=== PATIENT | female | born 1955 | race Caucasian/White ===

== ENCOUNTER 2021-12-05 07:57 | Outpatient (CLI) | payer MEDICARE, BC, SELFPAY ==
--- OUTSIDE RECORDS SUMMARY | 2021-12-05 07:59 | XMS_ITS | Clinical Summary ---
:1955 Author Organization [facility] [place] [address] Care Team Providers Name Role Phone Pcp, No Primary Care Provider Unavailable Allergies Active Allergy Reactions Severity Noted Date Comments Aspirin, Buffered 01/14/2010 Azithromycin Diarrhea, Rash 01/14/2010 Caffeine 01/14/2010 Penicillins Anaphylaxis 01/14/2010 Sulfa (Sulfonamide Antibiotics) Bleeding 0 Medications Medication Sig Dispensed Refills Start Date End Date Status atenolol (TENORMIN) Take 1 tablet by 0 01/14/2010 Active 25 mg tablet mouth 2 times daily. warfarin (COUMADIN) once daily. Takes 0 01/14/2010 Active 7.5 mg tablet 7.5 mg 4 days a week and 5 mg 3 days a week levothyroxine Take 1 tablet by 0 04/03/2010 Active (SYNTHROID) 175 mcg mouth once daily. tabletIndications: IBS (irritable bowel syndrome) omega-3 fatty Take 2 capsules 0 04/03/2010 Active acids-vitamin E (FISH by mouth once OIL) 1,000 mg Cap daily. multivitamin (MVI) Take 1 tablet by 0 04/03/2010 Active tablet mouth once daily. coenzyme q10 100 mg Take 1 capsule by 200 capsule 3 04/03/2010 Active Cap mouth 2 times daily. Thyroid, Pork, Take by mouth. 65 30 Tab 3 04/10/2010 Active (NATURE-THROID) 65 mg mg tab in am 1 Tab 1/2 tabs of 32.5 (48.75 mg) mg in mid to late afternoon Thyroid, Pork, Take by mouth. 65 mg tab in am 1 1/2 tabs of 32.5 (48.75 mg) mg in mid to late afternoon 60 Tab 2 04/10/2010 Act nayeli (NATURE-THROID) 32.5 mg Tab Give 60 tabs as we may titrate up to 65/65 predniSONE 2 tabs once daily 11 tablet 0 10/07/2017 Active (DELTASONE) 20 mg for 3 days then 1 tabletIndications: tab once daily Calcific Achilles for 3 days then tendonitis 1/2 tab once daily for 4 days. Active Problems Problem Noted Date Anti-phospholipid antibody syndrome 01/14/2010 Unspecified hypothyroidism 01/14/2010 HTN (hypertension) 01/14/2010 Fibromyalgia 01/14/2010 IBS (irritable bowel syndrome) 01/14/2010 Family History Medical History Relation Name Comments Other Brother 2 djd, migraine, i bs Other Father d 71, lung cance r smoke, prostate Other Mother d heart, alhz, 7 4, RA and OA Other Sister 2 fibro, diabetes, htn, djd Relation Name Status Comments Brother 1 Alive Brother 2 Father Mother Sister 1 Alive Sister 2 Social History Tobacco Use Types Packs/Day Years Used Date Never Smoker Smokeless Tobacco: Never Used Alcohol Use Standard Drinks/Week Comments No 0 (1 standard drink = 0.6 oz pure alcoho l) Sex Assigned at Date Recorded Not on file Obstetrics History Last Filed Vital Signs Vital Sign Reading Time Taken Comments Blood Pressure 124/80 10/07/2017 8:53 AM CDT Pulse 58 10/07/2017 8:53 AM CDT Temperature 36.9 ??C (98.4 ??F) 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 Respiratory Rate - - Oxygen Saturation 98% 10/07/2017 8:53 AM CDT Inhaled Oxygen Concentration - - Weight 104.5 kg (230 lb 6.4 oz) 10/07/2017 8:53 AM CDT Height - - Body Mass Index - - Plan of Treatment Health Maintenance Due Date Last Done Comments COVID-19 vaccine series (#1) 04[birth year]27/1956 Tdap 10/28/1966 Depression screening for age 12+ 1967 BMI (ht and wt on same day) for age 18+ 10/28/1973 Hepatitis C screening for age 18-79 10/28/1973 Tetanus booster 1975 Colonoscopy through age 75 10/28/2000 Lipids for age 45-75 10/28/2000 Mammogram for age 45-75 10/28/2000 Zoster (shingles) series for age 50+ (1 of 2) 10/28/2005 DEXA/DXA scan for age 65+ 10/28/2020 Pneumococcal series for age 65+ (1 - PCV) 10/28/2020 Influenza for age 65+ 10/10/2021 Results Not on filefrom Last 3 Months Insurance Payer Benefit Plan / Subscriber ID Effective Dates Phone Addre ss Type Group BLUE [place] [id number] 2009-Present [address] [id number] [place] [address] Care Teams Guest Room Inspector Relationship Specialty Start Date End Date Pcp, No PCP - General 08/31/17 .
--- OUTSIDE RECORDS SUMMARY | 2021-12-05 07:59 | XMS_ITS | Referral Summary ---
:1955 Author Organization [facility] Address [address] [place] [id number]- Encounter 02/04/18 - 02/04/18 [facility] [address] [address] Encounter Diagnosis Antiphospholipid syndrome (Final) - Discharge Disposition: 01-Home or Self Care Attending Physician: GUILHERME, DIAMONDNSYSTEM Admitting Physician: PROVIDERDIAMONDNSYSTEM Results Coagulation Most recent to oldest [Reference Range]: 1 PT [11.6-15.0 seconds] 27.8 seconds *HI* (02/04/18 9:53 AM) INR 2.5 *NA* (02/04/18 9:53 AM) Social History Social History Type Response
--- OUTSIDE RECORDS SUMMARY | 2021-12-05 07:59 | XMS_ITS | Referral Summary ---
:1955 Author Organization [facility] Address [address] [place] [id number]- Encounter 04/10/20 - 04/10/20 [facility] [address] [address] Discharge Disposition: 01-Home or Self Care Attending Physician: DIAMOND VANEGASNSYSTEM Admitting Physician: DIAMOND VANEGASNSYSTEM Results Most recent to oldest [Reference Range]: 1 PT [11.6-15.0 seconds] 26.1 seconds *HI* (04/10/20 1:43 PM) INR 2.4 *NA* (04/10/20 1:43 PM) Social History Social History Type Response
--- OUTSIDE RECORDS SUMMARY | 2021-12-05 07:59 | XMS_ITS | Referral Summary ---
:1955 Author Organization [facility] Address [address] [place] [id number]- Encounter 03/19/18 - 03/19/18 [facility] [address] [address] Discharge Disposition: 01-Home or Self Care Attending Physician: Cande Raman MD Admitting Physician: Cande Raman MD Results Coagulation Most recent to oldest [Reference Range]: 1 PT [11.6-15.0 seconds] 33.4 seconds *HI* (03/19/18 8:19 AM) INR 3.2 *NA* (03/19/18 8:19 AM) Social History Social History Type Response
--- NOTE | 2021-12-05 08:15 | CRLHL7_ITS ---
For Patients: As a result of the Century Cures Act, medical imaging exams and procedure reports are released immediately into your electronic medical record. You may view this report before your referring provider. If you have questions, please contact your health care provider. Indication: Hearing loss Technique: Brain and temporal bone MRI with contrast. The following sequences were obtained: DWI and ADC mapping sequences. Sagittal T1 weighted sequence. Axial FLAIR and T2 weighted sequences of the whole brain. 3D T2-weighted high resolution sequence of the temporal bones. Thin section T1 weighted axial and coronal pre-contrast and post-contrast sequences of the temporal bones. 3D T1 weighted post-contrast sequence of the whole brain. 15 cc gadolinium based contrast agent was used. Comparison: None Findings: No diffusion abnormalities. No evidence of recent or prior hemorrhage. No mass effect. The banks and white matter are normal in signal intensity. Small chronic cortical infarct in the left precentral gyrus. Small chronic lacunar infarct in the right parietal chatman radiata. Scattered foci of T2/FLAIR signal hyperintensity in the supratentorial white matter nonspecific but likely represent chronic microangiopathic changes. The sella turcica, its contents and adjacent structures appear normal. All the major intracranial vascular structures demonstrate normal flow-related signal voids and intraluminal enhancement. The inner ears, internal auditory canals, cerebellopontine angle cisterns, cerebellum, brainstem and temporal lobes bilaterally are normal in appearance. No vessel frankly impinges upon the 7th/8th cranial nerve complexes. There is no mass or pathologic enhancement involving the 7th or 8th cranial nerves on either side. The orbital contents are normal. No marrow signal abnormality. The paranasal sinuses and mastoid air cells are unremarkable. The scalp and other imaged soft tissue structures are normal in appearance. Impression: 1. No evidence of acute intracranial abnormality. 2. 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 Chronic small lacunar infarct in the right parietal chatman radiata. Mild presumed chronic microangiopathic changes. 3. Unremarkable MRI of the internal auditory canals, temporal bone structures, and cerebellopontine angles. Dictated by Adam Benson MD @ 12/05/2021 1:33:11 PM (Electronically Signed)
== END 2021-12-05 07:58 | disposition home or self-care (01) ==
LOC: MRI 07:58
PROVIDERS: PCP Internal Medicine; Visit Provider Otolaryngology
DX: H91.90 Unspecified hearing loss, unspecified ear (principal); I63.81 Other cerebral infarction due to occlusion or stenosis of small artery
CPT/HCPCS: 70553; A9575

== ENCOUNTER 2022-04-14 09:25 | Outpatient (CLI) | payer MEDICARE, BC, SELFPAY | END 2022-04-14 09:26 | disposition home or self-care (01) | LOC: NFLDREF 04-18 10:00 | PROVIDERS: PCP Internal Medicine; Referring Provider Internal Medicine; Visit Provider Internal Medicine | DX: E78.5 Hyperlipidemia, unspecified (principal); E03.9 Hypothyroidism, unspecified; D68.61 Antiphospholipid syndrome; Z87.39 Personal history of other diseases of the musculoskeletal system and connective tissue; Z51.81 Encounter for therapeutic drug level monitoring; Z79.01 Long term (current) use of anticoagulants; Z13.1 Encounter for screening for diabetes mellitus | CPT/HCPCS: 80061; 82947; 84439; 84443; 84550; 85610 ==

== ENCOUNTER 2022-08-26 13:17 | Outpatient (CLI) | payer MEDICARE, BC, SELFPAY ==
--- NOTE | 2022-08-26 13:20 | CRLHL7_ITS ---
For Patients: As a result of the Cures Act, medical imaging exams and procedure reports are released immediately into your electronic medical record. You may view this report before your referring provider. If you have questions, please contact your health care provider. BILATERAL SCREENING MAMMOGRAM WITH COMPUTER-AIDED DETECTION AND TOMOSYNTHESIS TECHNIQUE: CC and MLO views were obtained. These mammographic images have been obtained using full-field digital technique. These mammographic images were interpreted with the benefit of computer-aided detection. Breast tomosynthesis was used in this interpretation. COMPARISON FILM: 04/18/21, 12/15/18, 09/26/16. FINDINGS: There are scattered areas of fibroglandular density. IMPRESSION: There is no radiographic evidence for malignancy. ASSESSMENT: BI-RADS Category 2: Benign RECOMMENDATION: Routine screening mammogram in 1 year. A lay language report of this examination will be provided to the patient. SOCORRO BLACKBURN M.D. Diagnostic/Nuclear Medicine Radiologist [email or web address] MIKE:[email or web address] Transcribed: 08/27/2022, 5:[address]/Dictated by: Socorro Blackburn MD @ 08/27/2022 8:31:00 AM (Electronically Signed)
== END 2022-08-26 13:18 | disposition home or self-care (01) ==
LOC: MAMMO 13:18
PROVIDERS: PCP Internal Medicine; Visit Provider Internal Medicine
DX: Z12.31 Encounter for screening mammogram for malignant neoplasm of breast (principal)
CPT/HCPCS: 77063; 77067

== ENCOUNTER 2022-09-22 08:47 | Outpatient (CLI) | payer MEDICARE, BC, SELFPAY | END 2022-09-22 08:48 | disposition home or self-care (01) | LOC: NFLDREF 11:18 | PROVIDERS: PCP Internal Medicine; Referring Provider Internal Medicine; Visit Provider Internal Medicine | DX: E03.9 Hypothyroidism, unspecified (principal); Z51.81 Encounter for therapeutic drug level monitoring; Z79.01 Long term (current) use of anticoagulants | CPT/HCPCS: 84439; 84443; 85610 ==

== ENCOUNTER 2023-01-23 09:33 | Outpatient (CLI) | payer MEDICARE, SELFPAY | END 2023-01-23 09:34 | disposition home or self-care (01) | LOC: NFLDREF 09:34 | PROVIDERS: PCP Internal Medicine; Visit Provider Internal Medicine | DX: E03.9 Hypothyroidism, unspecified (principal); E78.5 Hyperlipidemia, unspecified; Z79.01 Long term (current) use of anticoagulants; D68.61 Antiphospholipid syndrome; M85.80 Other specified disorders of bone density and structure, unspecified site | CPT/HCPCS: 80061; 82306; 84439; 84443; 85610 ==

== ENCOUNTER 2023-05-20 08:50 | Outpatient (CLI) | payer MEDICARE, SELFPAY ==
--- OUTSIDE RECORDS SUMMARY | 2023-06-09 09:12 | XMS_ITS | Clinical Summary ---
Author Name Unknown Organization [id number] [place] [address] Care Team Providers Care Social Insurance Analyst Name Role Phone Pcp, No Primary Care Provider Unavailabl e Allergies Active Allergy Reactions Criticality Noted Date Comments Aspirin, Buffered 01/14/2010 Azithromycin Diarrhea,Rash 01/14/2010 Caffeine 01/14/2010 Penicillins Anaphylaxis 01/14/2010 Sulfa (Sulfonamide Antibiotics) Bleeding 07/2009 Medications Medication Sig Dispensed Refills Start Date End Date Status atenolol (TENORMIN) 25 mg tablet Take 1 tablet by mouth 2 times daily. 0 01/14/2010 Active warfarin (COUMADIN) 7.5 mg tablet once daily. Takes 7.5 mg 4 days a week and 5 mg 3 days a week 0 01/14/2010 Active levothyroxine (SYNTHROID) 175 mcg tabletIndications:I BS (irritable bowel syndrome) Take 1 tablet by mouth once daily. 0 04/03/2010 Active omega-3 fatty acids-vitamin E (FISH OIL) 1,000 mg Cap Take 2 capsules by mouth once daily. 0 04/03/2010 Active multivitamin (MVI) tablet Take 1 tablet by mouth once daily. 0 04/03/2010 Active coenzyme q10 100 mg Cap Take 1 capsule by mouth 2 times daily. 200 capsule 3 04/03/2010 Active Thyroid, Pork, (NATURE-THROID) 65 mg Tab Take by mouth. 65 mg tab in am 1 1/2 tabs of 32.5 (48.75 mg) mg in mid to late afternoon 30 Tab 3 04/10/2010 Active Thyroid, Pork, (NATURE-THROID) 32.5 mg Tab Take by mouth. 65 mg tab in am 1 1/2 tabs of 32.5 (48.75 mg) mg in mid to late afternoon Give 60 tabs as we may titrate up to 65/65 60 Tab 2 04/10/2010 Active predniSONE (DELTASONE) 20 mg tabletIndications:C alcific Achilles tendonitis 2 tabs once daily for 3 days then 1 tab once daily for 3 days then 1/2 tab once daily for 4 days. 11 tablet 10/07/2017 Active Active Problems Problem Noted Date Diagnosed Date Anti-phospholipid antibody syndrome 01/14/2010 Unspecified hypothyroidism 01/14/2010 HTN (hypertension) 01/14/2010 Fibromyalgia 01/14/2010 IBS (irritable bowel syndrome) 01/14/2010 Family History Medical History Relation Name Comments Other Brother 2 djd, migraine, ibs Other Father d 71, lung canc er smoke, prostate Other Mother d heart, alhz, 74, RA and OA Other Sister 2 fibro, diabetes , htn, djd Relation Name Status Comments Brother 1 Alive Brother 2 Father Mother Sister 1 Alive Sister 2 Social History Tobacco Use Types Packs/Day Years Used Date Smoking Tobacco: Never Smokeless Tobacco: Never Alcohol Use Standard Drinks/Week Comments No 0 (1 standard drink = 0.6 oz pur e alcohol) Sex and Gender Information Value Date Recorded Sex Assigned at Not on file Gender Identity Not on file Sexual Orientation Not on file Obstetrics History Last Filed Vital Signs Vital Sign Reading Time Taken Comments Blood Pressure 124/80 10/07/2017 8:53 AM CDT Pulse 58 10/07/2017 8:53 AM CDT Temperature 36.9 ??C (98.4 ??F) 01/14/2010 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 Respiratory Rate - - Oxygen Saturation 98% 10/07/2017 8:53 AM CDT Inhaled Oxygen Concentration - - Weight 104.5 kg (230 lb 6.4 oz) 10/07/2017 8:53 AM CDT Height - - Body Mass Index - - Plan of Treatment Health Maintenance Due Date Last Done Comments Tdap 10/28/1966 Depression screening for age 12+ 1967 BMI (ht and wt on same day) for age 18+ 10/28/1973 Hepatitis C screening for age 18-79 10/28/1973 Tetanus booster 1975 Colonoscopy through age 75 10/28/2000 Lipids for age 45-75 10/28/2000 Mammogram for age 45-75 10/28/2000 Zoster (shingles) series for age 50+ (1 of 2) 10/29/19 06 DEXA/DXA scan for age 65+ 10/28/2020 Pneumococcal series for age 65+ (1 of 1 - PCV) 021 COVID-19 vaccine series (1 - 2022-24 season) 3 Influenza for age 65+ 10/11/2023 Care Teams Social Insurance Analyst Relationship Specialty Start Date End Date Pcp, No . PCP - General 08/31/17
== END 2023-05-20 08:51 | disposition home or self-care (01) ==
LOC: NFLDREF 06-09 09:11
PROVIDERS: PCP Internal Medicine; Referring Provider Internal Medicine; Visit Provider Internal Medicine
DX: E03.9 Hypothyroidism, unspecified (principal)
CPT/HCPCS: 84443

== ENCOUNTER 2023-08-27 09:16 | Outpatient (CLI) | payer MEDICARE, BC, SELFPAY ==
--- OUTSIDE RECORDS SUMMARY | 2023-08-31 17:25 | XMS_ITS | Clinical Summary ---
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 PCP - General 08/31/17
== END 2023-08-27 09:17 | disposition home or self-care (01) ==
LOC: NFLDREF 08-31 17:23
PROVIDERS: PCP Internal Medicine; Referring Provider Internal Medicine; Visit Provider Internal Medicine
DX: D68.61 Antiphospholipid syndrome (principal); Z79.01 Long term (current) use of anticoagulants; Z51.81 Encounter for therapeutic drug level monitoring
CPT/HCPCS: 85610

== ENCOUNTER 2023-09-21 10:50 | Outpatient (CLI) | payer MEDICARE, BC, SELFPAY ==
--- OUTSIDE RECORDS SUMMARY | 2023-09-24 12:58 | XMS_ITS | Clinical Summary ---
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 PCP - General 08/31/17
== END 2023-09-21 10:51 | disposition home or self-care (01) ==
LOC: NFLDREF 09-24 12:55
PROVIDERS: PCP Internal Medicine; Referring Provider Internal Medicine; Visit Provider Internal Medicine
DX: D68.61 Antiphospholipid syndrome (principal); Z79.01 Long term (current) use of anticoagulants; Z51.81 Encounter for therapeutic drug level monitoring
CPT/HCPCS: 85610

== ENCOUNTER 2023-10-19 08:26 | Outpatient (CLI) | payer MEDICARE, BC, SELFPAY | END 2023-10-19 08:27 | disposition home or self-care (01) | LOC: NFLDREF 10-23 08:49 | PROVIDERS: PCP Internal Medicine; Referring Provider Internal Medicine; Visit Provider Internal Medicine | DX: Z79.01 Long term (current) use of anticoagulants (principal); Z51.81 Encounter for therapeutic drug level monitoring | CPT/HCPCS: 85610 ==

== ENCOUNTER 2024-02-11 07:28 | Outpatient (CLI) | payer MEDICARE, BC, SELFPAY | END 2024-02-11 07:29 | disposition home or self-care (01) | LOC: NFLDREF 02-13 23:39 | PROVIDERS: PCP Internal Medicine; Referring Provider Internal Medicine; Visit Provider Internal Medicine | DX: Z79.01 Long term (current) use of anticoagulants (principal); D68.61 Antiphospholipid syndrome | CPT/HCPCS: 85610 ==

== ENCOUNTER 2024-06-08 08:05 | Outpatient (CLI) | payer MEDICARE, BC, SELFPAY | END 2024-06-08 08:06 | disposition home or self-care (01) | LOC: NFLDREF 06-11 00:10 | PROVIDERS: PCP Internal Medicine; Referring Provider Internal Medicine; Visit Provider Internal Medicine | DX: E03.9 Hypothyroidism, unspecified (principal); E78.5 Hyperlipidemia, unspecified; M81.0 Age-related osteoporosis without current pathological fracture; M85.80 Other specified disorders of bone density and structure, unspecified site | CPT/HCPCS: 80061; 82306; 84443 ==

== ENCOUNTER 2024-08-17 14:00 | Outpatient (RCR) | payer MEDICARE, BC, SELFPAY ==
--- NOTE | 2024-07-13 10:08 | PT.OPEX ---
PT [place] Outpatient Eval PT [facility] Outpatient Eval Start: 07/06/24 07:50 Freq: Status: Active Protocol: Document 07/13/24 08:20 VMS (Rec: 07/13/24 10:02 VMS [id number]) E-signed By Vickie Garcia Physical Therapy Outpatient Evaluation Insurance Information Recert Due Date 10/05/24 Insurance Name Medicare B,Blue Cross/Blue Shield Medical Diagnosis Pain in R knee Treating Diagnosis R knee pain Generalized LE weakness Limited R knee ROM Referring MD Cande Raman Subjective Subjective July 13 2024 : iLve is a 68 year F with complaints of R knee pain. Goes to [place] for the winter and was biking a lot . If she biked that day, it will keep her up at night. Also drives a great deal and will get sore after a while. Has PMH of fibromyalgia. Will get Charley horses in the calf at night and first thing in the morning. Date of onset: 6 months ago Aggravating Factors: stairs, prolonged sitting/driving, increased activity, prolonged walking (only able to complete 2 miles when she used to do 4 miles) Easing Factors: rest, ice, heat, tramadol (prn) Method of Injury: insidious onset Radiation: Denies Numbness / Tingling: Denies Progression: gradually worse History of Knee Injuries: denies knee injuries. Had sciatica a while ago. Has bunions on her feet. Both managed. Falls: Denies falls in the past year. Activity level: walks 4-5 days/week (would walk 3-4 miles regularly- is not doing that not); bikes 1-2 days /week (has not been able to for 6 months due to pain); has been doing stretching and yoga. Gardens frequently but activities are limited d/t pain. Review of Systems: History obtained from chart review, health history form, and the patient. I am only responding to those symptoms which are directly relevant to my consultation. Recommend the patient follow up with their primary/referring provider for other symptoms. Pain Comments Pain Location/Type: anterior and medial knee pain around patella. Ache, describes clicking as a recent development. Current: 1/10 pain Best: 0/10 when sitting around doing nothing for a week . 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 Edema: 0 AROM: Knee: L: 6-0-133 R: 0-2-123 Hip: Flex: WFL Ext: WFL IR: limited bilat ER: WFL JPA: Tibiofemoral: Anterior: Normal bilat Posterior: Normal bilat Patellofemoral: Lateral glide: hypomobile on R Medial glide: hypomobile on R Superior glide: hypomobile on R Inferior glide: hypomobile on R Strength: Knee: Quads: L: 4+/5; R: 4-/5 Hamstrings: 4+/5 bilat Hip: Flex: L: 4+/5; R: 4-/5 Abd: 3+/5 bilat Ext: 3+/5 bilat Add: 3+/5 bilat Ankle: PF: R: only able to complete 3 with pain on lateral side; L: completes 10 heel raises Muscle Length: Rod test: (+) bilat for rec fem tightness -- R: 137 deg; L: 122 deg Lore's test: (+) bilat Hamstring 90/90: Not tested today Special Tests: Meniscus: End-range flexion: (-) End-range extension (bounce home): (-) Joint line tenderness: (+) on R Functional Test LEFS: 50/80 = 62.5% Performed & Score Assessment Assessment/ 2024-07-13: Initial Evaluation Assessment & PT Impression Impression: Live is a pleasant 68 year female presenting to outpatient physical therapy with primary complaint of R knee pain. Pertinent physical examination findings include general LE weakness, limited R knee extension/ flexion ROM, bilateral tightness in rectus femoris, impaired balance and gait. Functionally, the patient is limited in activities including standing/driving for prolonged periods of time, walking, squatting and participation in recreational activities such as biking and gardening. She requires skilled physical therapy in order to address the above impairments, improve patients symptom status, and assist her in returning to her prior level of function. Barriers to Learning: None Primary Functional standing/driving for prolonged periods of time, Limitations squatting, gardening, biking Plan of Care Rehabilitation Good Potential Rehabilitation nature of degenerative changes to knee Potential Comments Physical Therapy STG: Goals 1. Patient will be independent with HEP by the end of 2 weeks. 2. Patient will improve knee extension strength to at least 4/5 by the end of 4 weeks. LT. Patient will improve flexion/extension ROM to be within 5 degrees of L by the end of 8 weeks. 2. Patient will be able to bike for at least 20 minutes with no greater than 3/10 pain by the end of 8 weeks. 3. Patient will improve hip abduction strength to at least 4/5 by the end of 8 weeks. Coordination/ Referral Source Communication With Treatment Plan/ Joint Mobilization,Manual Therapy,Neuromuscular Re-ed, Direct Interventions Therapeutic Activities,Therapeutic Exercises Frequency/Duration 1x/week for 8 weeks Patient Will Be Completion of LTG(s),Independent w/HEP,Independently Discharged From Progressing Therapy Evaluation Billing Untimed Code 37 Treatment Minutes Complexity Low Certification Information Initial 07/13/24 Certification Date Ending Certification 10/05/24 Date Provider Signature Yes Required Provider Signature POC & Medical Necessity Shows Agreement With Physician NPI Number Write NPI# Here Physician Comment/ : Change Physician Signature Please Sign/Date Here & Date Requested
== END 2024-12-15 23:59 | disposition home or self-care (01) ==
PROVIDERS: PCP Internal Medicine; Visit Provider Internal Medicine
DX: M25.561 Pain in right knee (principal); Z51.89 Encounter for other specified aftercare
CPT/HCPCS: 97110; 97161

== ENCOUNTER 2024-09-26 08:04 | Outpatient (CLI) | payer MEDICARE, BC, SELFPAY ==
--- NOTE | 2024-09-26 08:15 | CRLHL7_ITS ---
For Patients: As a result of the Century Cures Act, medical imaging exams and procedure reports are released immediately into your electronic medical record. You may view this report before your referring provider. If you have questions, please contact your health care provider. BILATERAL DIGITAL SCREENING MAMMOGRAM WITH COMPUTER-AIDED DETECTION AND TOMOSYNTHESIS CLINICAL HISTORY: : Routine screening exam. COMPARISON: Mammograms 08/26/2022, 04/18/2021 and 12/15/2018. TECHNIQUE: Digital mammogram in CC and MLO projections including computer-aided detection and tomosynthesis. BREAST COMPOSITION: There are scattered areas of fibroglandular density. FINDINGS: RIGHT Breast: No suspicious findings. LEFT Breast: There are calcifications in the outer central breast at middle depth, 7 cm from the nipple. IMPRESSION: LEFT breast calcifications. RECOMMENDATIONS: A true lateral view and spot magnification views of the calcifications in the LEFT breast in CC and ML projections. A member of the health care team will contact the patient to schedule the required additional imaging appointment. BI-RADS Category 0: Incomplete: Need Additional Imaging Evaluation Dictated by Shelbi Palomares MD @ 09/27/2024 8:50:20 AM (Electronically Signed)
== END 2024-09-26 08:05 | disposition home or self-care (01) ==
LOC: MAMMO 08:05
PROVIDERS: PCP Internal Medicine; Visit Provider Internal Medicine
DX: Z12.31 Encounter for screening mammogram for malignant neoplasm of breast (principal); N63.20 Unspecified lump in the left breast, unspecified quadrant
CPT/HCPCS: 77063; 77067

== ENCOUNTER 2024-10-17 08:27 | Outpatient (CLI) | payer MEDICARE, BC, SELFPAY | END 2024-10-17 08:28 | disposition home or self-care (01) | LOC: NFLDREF 10-20 10:28 | PROVIDERS: PCP Internal Medicine; Referring Provider Internal Medicine; Visit Provider Internal Medicine | DX: D68.61 Antiphospholipid syndrome (principal) | CPT/HCPCS: 85610 ==

== ENCOUNTER 2024-10-20 08:28 | Outpatient (CLI) | payer MEDICARE, BC, SELFPAY ==
--- NOTE | 2024-10-20 08:45 | CRLHL7_ITS ---
For Patients: As a result of the Century Cures Act, medical imaging exams and procedure reports are released immediately into your electronic medical record. You may view this report before your referring provider. If you have questions, please contact your health care provider. DIGITAL DIAGNOSTIC LEFT MAMMOGRAM CLINICAL HISTORY: LEFT breast calcification. COMPARISON: 09/26/2024, 08/26/2022, 04/18/2021. TECHNIQUE: Digital LEFT mammogram in three projections. BREAST COMPOSITION: There are scattered areas of fibroglandular density. FINDINGS: Additional mammogram images LEFT breast submitted. Loose cluster of microcalcifications within the lower outer quadrant 4 o`clock 6 cm from the nipple. No definitive layering. Mild pleomorphism. IMPRESSION: Indeterminate microcalcifications LEFT breast 4 o`clock 6 cm from the nipple. RECOMMENDATIONS: Stereotactic biopsy should be considered. A lay language report of this examination will be provided to the patient. BI-RADS Category 4: Suspicious Dictated by Adam Castañeda MD @ 10/20/2024 10:04:29 AM jj/Dictated by: Adam Castañeda MD @ 10/20/2024 10:04:00 AM (Electronically Signed)
== END 2024-10-20 08:29 | disposition home or self-care (01) ==
LOC: MAMMO 08:29
PROVIDERS: PCP Internal Medicine; Visit Provider Internal Medicine
DX: R92.1 Mammographic calcification found on diagnostic imaging of breast (principal)
CPT/HCPCS: 77065; G0279

== ENCOUNTER 2024-11-28 08:03 | Day surgery (SDC) | payer MEDICARE, BC, SELFPAY ==
--- NOTE | 2024-11-28 08:15 | CRLHL7_ITS ---
For Patients: As a result of the Cures Act, medical imaging exams and procedure reports are released immediately into your electronic medical record. You may view this report before your referring provider. If you have questions, please contact your health care provider. BREAST WIRE LOCALIZATION USING ULTRASOUND GUIDANCE CLINICAL HISTORY: Microcalcifications. LATERALITY: LEFT breast. LESION: Previously biopsied microcalcifications LEFT breast 3 o`clock 7 cm from the nipple with HydroMARK present. LOCALIZATION WIRE: [place] hookwire. TECHNIQUE: The localization wire was placed using real-time ultrasound guidance with image documentation. Cranial-caudal and medial-lateral digital mammograms were obtained after localization wire placement. CONSENT and TIME OUT: The procedure, risks, and alternatives were explained to the patient, and a consent was signed. [place] Protocol was followed including pre-procedure verification that relevant information/documentation was available, reviewed and properly matched to the patient; consent accurate and complete; and equipment and supplies available. Time Out was conducted just prior to starting procedure to verify the four required elements: patient identity, correct side/site marked (if applicable), procedure, relevant images/results properly labeled and displayed (if applicable). PROCEDURE: The skin was prepped with ChloraPrep and 5 cc of 1% lidocaine was injected for local anesthesia. The localization wire was placed within or near the targeted breast lesion using ultrasound guidance. The patient tolerated the procedure well. PROXIMITY OF WIRE TO LESION: The wire is immediately adjacent to the clip. IMPRESSION: Successful breast wire localization. ACR not applicable Dictated by Adam Castañeda MD @ 11/28/2024 9:42:36 AM jj/Dictated by: Adam Castañeda MD @ 11/28/2024 9:42:00 AM (Electronically Signed)
--- NOTE | 2024-11-28 09:00 | CRLHL7_ITS ---
For Patients: As a result of the Cures Act, medical imaging exams and procedure reports are released immediately into your electronic medical record. You may view this report before your referring provider. If you have questions, please contact your health care provider. SEE ULTRASOUND-GUIDED LEFT BREAST WIRE LOCALIZATION PERFORMED SAME DAY CRL:percy greer/Dictated by: Adam Castañeda MD @ 11/28/2024 9:41:00 AM (Electronically Signed)
[2024-11-28 09:32] VITALS: BMI 33.5
[2024-11-28] MEDS: SODIUM CHLORIDE 0.9 % (FLUSH) 10 ML SYRINGE IVF (09:35)
[2024-11-28 09:38] VITALS: BP 154/90; PULSE 56; RESP 14; TEMP 36.4; O2SAT 98
[2024-11-28] MEDS: LACTATED RINGERS 1000 ML 1,000 ML 100 ML IV (09:38)
--- NOTE | 2024-11-28 12:21 | P.GSOP_ITS ---
Operative Note Date of procedure: 11/28/24 Pre-op diagnosis: Left breast atypical ductal hyperplasia Post-op diagnosis: Same Type of Procedure: Excisional biopsy left breast mass with preoperative wire localization Indications: The patient is a 69-year-old female who was found to have an area of calcifications on mammogram. 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 Excisional biopsy was recommended. After discussion of risks and benefits, she agreed to proceed. Procedure Description: After discussing the risks and benefits of the procedure, the patient signed informed consent.? The operative site was marked and the patient was brought to the operating room and placed on the operating table in supine position.? Care was taken to pad the patient's pressure points.?? The patient was then given s edation by anesthesia.?? The operative site was then prepped and draped in the usual sterile fashion.? A time-out was then performed. A curvilinear incision was made at the border of the areola in the lower outer quadrant after injecting local anesthetic. A subcutaneous flap was created until the wire was encountered. The mass was palpable and was dissected from the surrounding breast tissue using the wire as a guide. Of note, the mass was separate from but close to the skin and the dissection plane inferiorly was very superficial. Once the mass was completely excised, it was inked for orientation and sent to mammography. Mammography showed the mass, the wire and the clip. The wound was examined for hemostasis which appeared excellent. I then did clip the cavity with surgical clips to brayan it in the event that the results return malignant and radiation is necessary. Patricia was then placed in the wound bed as the patient is going to be anticoagulated starting tomorrow. The wound was then closed with 3-0 Vicryl and 4-0 Monocryl running subcuticular suture. Steri-Strips and a compressive wrap was then applied. ? The patient was then woken and transported to the recovery area in stable condition. ? The patient tolerated the procedure well. Findings: Left breast mass with clip and wire noted in the specimen on imaging Surgeon: Sendy Retana MD Estimated blood loss (mL): 5 Specimen: Other Additional Specimen Information: Left breast mass, excisional biopsy Condition: stable Disposition: same day
--- NOTE | 2024-11-28 12:21 | W.PM.H&PU ---
History & Physical Update History & Physical Update H&P Reviewed and patient assessed: No changes noted H&P Updates: Here today for excisional biopsy. INR is 1.1. She was given instructions on bridging her Coumadin. She took Lovenox last yesterday.
[2024-11-28] MEDS: CLINDAMYCIN 900 MG/50 ML-D5W IVPB (12:45)
--- NOTE | 2024-11-28 12:46 | CRLHL7_ITS ---
For Patients: As a result of the Cures Act, medical imaging exams and procedure reports are released immediately into your electronic medical record. You may view this report before your referring provider. If you have questions, please contact your health care provider. CLINICAL HISTORY: LEFT breast specimen. COMPARISON: 11/28/24, 10/20/2024, 09/26/2024. FINDINGS: Two views of the LEFT breast specimen submitted. Specimen contains the biopsy clip along with the localization wire and the area biopsied. IMPRESSION: Specimen contains the biopsy clip and localization wire. ACR not applicable. Dictated by Adam Castañeda MD @ 11/29/2024 8:45:24 AM DAVE/cain DW/Dictated by: Adam Castañeda MD @ 11/29/2024 8:45:00 AM (Electronically Signed)
[2024-11-28] MEDS: BUPIVACAINE 0.25% 30 ML INJECTION (13:02)
[2024-11-28] MEDS: LIDOCAINE 1% MDV 2.5 ML INJECTION (13:02)
--- NOTE | 2024-11-28 13:13 | SUR.OPER ---
PATIENT QUESTIONS ANSWERED SATISFACTORILY PREOPERATIVELY. PATIENT BROUGHT TO OR #4 PER CART. Patient positioned supine on OR #4 bed. The perioperative team supported arms bilaterally on arm boards. Final approval of positioning by surgeon.
[2024-11-28 13:45] VITALS: BP 122/76; PULSE 65; RESP 16; TEMP 36.3; O2SAT 96
--- NOTE | 2024-11-28 13:48 | P.ANES_ITS ---
Anesthesia Charges Start Date/Time Anesthesia Start Date: 11/28/24 Anesthesia Start Time: 12:42 Stop Date/Time Anesthesia Stop Date: 11/28/24 Anesthesia Stop Time: 13:49 Coding CPT Codes CPT Codes: ANESTH SKIN EXT/PER/ATRUNK - 48931 ([id number]) QK - FOOT DRILL OPERATOR 2-4 CNCRNT ANES PROC, QX - SOCIAL SERVICES ANALYST SVC W/ MD MED DIRECTION, P3 - PATIENT W/SEVERE SYS DISEASE
--- NOTE | 2024-11-28 13:48 | W.ANESCHARGE ---
Anesthesia Charges Start Date/Time Anesthesia Start Date: 11/28/24 Anesthesia Start Time: 12:42 Stop Date/Time Anesthesia Stop Date: 11/28/24 Anesthesia Stop Time: 13:49 Coding CPT Codes CPT Codes: ANESTH SKIN EXT/PER/ATRUNK - 89167 ([id number]) QK - SSAS DEVELOPER 2-4 CNCRNT ANES PROC, QX - SPEEDER FRAME TENDER SVC W/ MD MED DIRECTION, P3 - PATIENT W/SEVERE SYS DISEASE
[2024-11-28 14:00] VITALS: BP 119/73; PULSE 54; RESP 14; O2SAT 97
[2024-11-28 14:15] VITALS: BP 134/79; PULSE 62; RESP 16; O2SAT 98
[2024-11-28] MEDS: TRAMADOL HCL 50 MG TABLET PO (14:16)
[2024-11-28 14:30] VITALS: BP 145/74; PULSE 51; RESP 14; O2SAT 99
--- NOTE | 2024-11-28 14:47 | P.ANES_ITS ---
Anesthesia Charges Start Date/Time Anesthesia Start Date: 11/28/24 Anesthesia Start Time: 12:42 Stop Date/Time Anesthesia Stop Date: 11/28/24 Anesthesia Stop Time: 13:49 Coding CPT Codes CPT Codes: ANESTH SKIN EXT/PER/ATRUNK - 02079 ([id number]) QK - CUTTER OPERATOR HELPER 2-4 CNCRNT ANES PROC, QX - LEASE BROKER SVC W/ MD MED DIRECTION, P3 - PATIENT W/SEVERE SYS DISEASE
--- NOTE | 2024-11-28 14:47 | W.ANESCHARGE ---
Anesthesia Charges Start Date/Time Anesthesia Start Date: 11/28/24 Anesthesia Start Time: 12:42 Stop Date/Time Anesthesia Stop Date: 11/28/24 Anesthesia Stop Time: 13:49 Coding CPT Codes CPT Codes: ANESTH SKIN EXT/PER/ATRUNK - 27891 ([id number]) QK - COMPETITIVE INTELLIGENCE ANALYST 2-4 CNCRNT ANES PROC, QX - CORPORATE COMPLIANCE DIRECTOR SVC W/ MD MED DIRECTION, P3 - PATIENT W/SEVERE SYS DISEASE
[2024-11-28 15:00] VITALS: BP 139/81; PULSE 57; RESP 16; TEMP 36.2; O2SAT 96
--- NOTE | 2024-11-28 15:22 | SUR.PREOP ---
INR was checked pre procedure per Dr. Retana order. INR was 1.1 and MD notified.
== END 2024-11-28 15:23 | disposition home or self-care (01) ==
PROVIDERS: PCP Internal Medicine; Visit Provider Surgery
PROC: (CPT 19125; principal; 2024-11-28 12:30)
PROC: (CPT 19125; 2024-11-28 12:30)
DX: N60.91 Unspecified benign mammary dysplasia of right breast (principal); N63.23 Unspecified lump in the left breast, lower outer quadrant; R92.0 Mammographic microcalcification found on diagnostic imaging of breast
CPT/HCPCS: 19125; 00400; 19285; 76942; 77065; 88307; 88360; J2003; A9270; C1769; J0665; J0736; J2250; J2405; J2704; J3010; J3490; J7120

== ENCOUNTER 2025-01-11 09:37 | Outpatient (CLI) | payer MEDICARE, BC, SELFPAY | END 2025-01-11 09:38 | disposition home or self-care (01) | LOC: NFLDREF 01-13 14:27 | PROVIDERS: PCP Internal Medicine; Referring Provider Internal Medicine; Visit Provider Internal Medicine | DX: Z51.81 Encounter for therapeutic drug level monitoring (principal); Z79.01 Long term (current) use of anticoagulants; D68.61 Antiphospholipid syndrome | CPT/HCPCS: 85610 ==